=== PATIENT | female | born 1975 | race Caucasian/White ===

== ENCOUNTER → 2016-06-30 | Outpatient (CLI) | payer OTHER | LOC: KOH-I 09:04 | DX: M25.521 Pain in right elbow (principal); M54.5 Low back pain; W18.39XA Other fall on same level, initial encounter | CPT/HCPCS: 72110; 73080 ==

== ENCOUNTER → 2016-09-22 | Outpatient (CLI) | payer OTHER ==
[2016-09-22 17:36] LABS: BUN/CREATININE RATIO 23 (0-10)
== END ==
LOC: LAB 16:49
PROVIDERS: Dermatology
DX: L70.9 Acne, unspecified (principal)
CPT/HCPCS: 36415; 80053; 82248; 82465; 84478

== ENCOUNTER 2020-06-09 17:32 | Emergency (ER) | payer BC, OTHER ==
[2020-06-09 18:41] LABS: HEMOGLOBIN 14.7 gm/dl (12.3-15.3); RED BLOOD COUNT 4.83 M/UL (4.00-5.10); WHITE BLOOD COUNT 14.4 K/UL (4.5-11.0)
[2020-06-09 19:00] LABS: BUN/CREATININE RATIO 16 (0-10)
[2020-06-09] MEDS ORDERED: ZOFRAN4 MG PO (20:34)
== END 2020-06-09 21:20 | disposition home or self-care (01) ==
LOC: ER1 17:32
PROVIDERS: Family Medicine
DX: U07.1 COVID-19 (principal); E87.6 Hypokalemia; R11.2 Nausea with vomiting, unspecified; Z88.2 Allergy status to sulfonamides; Z97.5 Presence of (intrauterine) contraceptive device
CPT/HCPCS: 36415; 80053; 81001; 82150; 83690; 84703; 85025; 96374; 96376; 99284; J2405; Q9967; U0002